=== PATIENT | female | born 2000 | race Two or more races ===

== ENCOUNTER 2021-05-09 06:34 | Emergency (ER) | payer OTHER ==
[~2021-05-09] VITALS: Ht 149.9 cm; Wt 59.1 kg
[2021-05-09] MEDS ORDERED: ACETAMINOPHEN 500 MG TABLET PO ONE (06:45)
[2021-05-09 07:20] LABS: COVID AG,FIA SOURCE NASOPHARYNGEAL
[2021-05-09 08:13] LABS: BASOPHILS % (AUTO) 0.4 % (0.0-2.0); EOSINOPHILS % (AUTO) 0 % (1.0-6.0); HEMATOCRIT 36.1 % (36-46); HEMOGLOBIN 12.1 g/dL (12.0-16.0); LYMPHOCYTES % (AUTO) 9.3 % (22.0-44.0); MEAN CORPUSCULAR HEMOGLOBIN 30.1 pg (26.0-34.0); MEAN CORPUSCULAR HGB CONC 33.6 G/dL (31.0-37.0); MEAN CORPUSCULAR VOLUME 90 fL (80-100); MONOCYTES # (AUTO) 0.6 K/uL (0.1-1.0); MONOCYTES % (AUTO) 6.2 % (2.0-9.0); NEUTROPHILS # (AUTO) 8.8 K/uL (1.8-7.7); NEUTROPHILS % (AUTO) 84.1 % (40.0-70.0); PLATELET COUNT (AUTO) 228 K/uL (150-450); RED BLOOD CELL COUNT(AUTO) 4.03 MIL/uL (4.00-5.20); RED CELL DISTRIBUTION WIDTH 13.1 % (11.5-14.5)
[2021-05-09 08:21] LABS: ANION GAP 11 mmol/L (8-16); CALCIUM, TOTAL 8.8 mg/dL (8.8-10.5); CARBON DIOXIDE 25 mmol/L (22-29); CHLORIDE 103 mmol/L (98-107); CREATININE 0.49 mg/dL (0.60-1.30); GLOMERULAR FILTR. RATE CALC > 60 mL/min (>60); GLUCOSE,RANDOM 105 mg/dL (70-110); POTASSIUM 3.4 mmol/L (3.5-5.1); SODIUM SERUM 139 mmol/L (136-145); UREA NITROGEN, BLOOD 8 mg/dL (7-18)
[2021-05-09] MEDS ORDERED: SODIUM CHLORIDE 0.9% 1,000 ML IV ONE ×2 (08:30→10:00)
[2021-05-09 08:35] LABS: HCG,QUANTITATIVE < 1 mIU/mL (0-6)
[2021-05-09] MEDS ORDERED: SODIUM CHLORIDE 0.9% 100 ML ONE (08:43)
[2021-05-09] MEDS ORDERED: IOHEXOL 350 MG/ML 100 ML VIAL ONE (08:44)
[2021-05-09 10:04] VITALS: BP 111/69
== END 2021-05-09 10:27 | disposition home or self-care (01) ==
LOC: EMS 06:34
DX: R07.81 Pleurodynia (principal); R06.02 Shortness of breath; R51.9 Headache, unspecified; Z20.822 Contact with and (suspected) exposure to COVID-19
CPT/HCPCS: 36415; 71045; 71275; 80048; 84484; 84702; 85025; 85379; 87426; 93005; 96360; 96361; 99285; J7050; Q9967; U0003